=== PATIENT | male | born 1975 | race Caucasian/White ===

== ENCOUNTER 2017-01-03 15:43 | Emergency (ER) | payer OTHER ==
--- NOTE | ~2017-01-03 | CR151 ---
[facility]. [facility] A Service of [facility] & [facility] RADIOLOGY TEXT RESULTS PATIENT: ELIZABETH GARIBAY LOCATION: SED : 79 UNIT #: [id number] AGE: [address]: NELDA ROMERO SEX: M ORDER DR: [id number] [place] [id number] E MR#: [id number] Acc #: [id number] NAME: ELIZABETH GARIBAY. : 1975 SEX: M STUDY DATE/TIME: 01/03/2017 16:35 UNIT: SED ROOM: STUDY DESCRIPTION: CR Hip Min 2 Views Rt Attending Physician: Nelda Romero Ordering Physician: Munir Olson M.D. Primary Care Physician: No Primary Care Physician MEDICAL IMAGING REPORT This report is preliminary unless electronic signature is present. EXAM Right hip. INDICATIONS Right leg and hip pain. Fall. FINDINGS AP view of the pelvis and frog-leg lateral view of the right hip without comparison. There is no acute fracture or dislocation. No foreign body. IMPRESSION No acute findings. Dictated by... Silvestre Hurst M.D. THIS IS AN ELECTRONICALLY VERIFIED REPORT Silvestre Hurst M.D. at 01/04/2017 10:25 PM JESUS ALBERTO/grady TD: 01/03/2017 18:34 JOB #: [id number] MEDICAL IMAGING REPORT Page 1 of 1
--- NOTE | ~2017-01-03 | CR107 ---
[facility]. [facility] A Service of [facility] & [facility] RADIOLOGY TEXT RESULTS PATIENT: ELIZABETH GARIBAY LOCATION: SED : 79 UNIT #: [id number] AGE: [address]: ANGLE LEBRON SEX: M ORDER DR: [id number] [place] [id number] E MR#: [id number] Acc #: [id number] NAME: ELIZABETH GARIBAY. : 1975 SEX: M STUDY DATE/TIME: 01/03/2017 16:35 UNIT: SED ROOM: STUDY DESCRIPTION: CR Femur 2 Views Rt Attending Physician: Angle Lebron Primary Care Physician: Primary Care Physician No MEDICAL IMAGING REPORT This report is preliminary unless electronic signature is present. EXAM Right femur INDICATIONS Status post fall. Right lower extremity pain. FINDINGS 2 views of the right femur without comparison. There is no acute fracture or dislocation. Articulation at the hip and knee is anatomic. No foreign body. IMPRESSION No acute findings. Dictated by... Silvestre Hurst M.D. THIS IS AN ELECTRONICALLY VERIFIED REPORT Silvestre Hurst M.D. at 01/03/2017 6:27 PM C/to TD: 01/03/2017 18:05 JOB #: [id number] MEDICAL IMAGING REPORT Page 1 of 1
[~2017-01-03 15:43] MED LIST: BENADRYL PO; MOBIC PO; NO MEDICATIONS; PEN-VEE K PO
== END 2017-01-03 17:16 | disposition home or self-care (01) ==
LOC: SED 15:43
DX: S70.11XA Contusion of right thigh, initial encounter (principal); F17.200 Nicotine dependence, unspecified, uncomplicated; W18.00XA Striking against unspecified object with subsequent fall, initial encounter; Y92.009 Unspecified place in unspecified non-institutional (private) residence as the place of occurrence of the external cause
CPT/HCPCS: 73502; 73552; 99284